=== PATIENT | female | born 1930 | race Caucasian/White ===

== ENCOUNTER 2017-02-01 14:12 | Emergency (ER) | payer MEDICARE ==
[2017-02-01] MEDS ORDERED: NITRO-BID 2% UD PACKETS TOP ONE (14:16)
[2017-02-01] MEDS ORDERED: CAPTOPRIL 25 MG PO ONE (14:18)
[2017-02-01] MEDS ORDERED: NITRO-BID 2% UD PACKETS ONE (14:22)
[2017-02-01] MEDS ORDERED: Sodium Chloride 0.9% 1000 ML 1,000 ML ONE (14:23)
[2017-02-01] MEDS ORDERED: CAPTOPRIL 25 MG ONE (14:23)
--- NOTE | 2017-02-01 14:24 | ERPHSYRPT ---
- History of Present Illness Time Seen by Provider: 02/01/17 14:16 Historian: patient, EMS, old records Exam Limitations: no limitations Physician History: CP after lunch 1 hour ago; no radiation; substernal 02/15; has had 4 baby asa and NTG x 4- pain now 12/16; no n&V; no diaphoresis; slight sob will place on O2 ; Timing/Duration: today, hour(s) (1), sudden, improved Activities at Onset: other (after eating) Quality: fullness Location: substernal Chest Pain Radiation: no radiation Severity of Pain-Max: severe Severity of Pain-Current: moderate Modifying Factors: Improves With: eating (worse after), oxygen (helps), aspirin , sitting up Associated Symptoms: shortness of breath (slight) Prior Chest Pain/Cardiac Workup: angina, cardiac cath, heart attack Nitro Today/Relief: 0.4 mg x 4, provided by EMS, provided by ED, mild relief Aspirin Treatment Today: 81 mg x 4, provided by EMS Allergies/Adverse Reactions: ceftriaxone Allergy (Verified 10/14/15 08:23) iodine Allergy (Verified 10/14/15 08:23) tetracycline Allergy (Verified 02/01/17 14:29) ANIMAL FUR Allergy (Uncoded 10/14/15 06:23) PERFUME OIL Allergy (Uncoded 10/14/15 06:23) Home Medications: Acetaminophen 325 mg [Tylenol 325 mg] 325 mg PO HS 10/14/15 [History] Albuterol 2.5 mg/3 ml Neb [Proventil 2.5 mg/3 ml Neb] 2.5 mg IH Q4HPRN PRN 10/14/15 [History] Amlodipine Besylate 5 mg [Norvasc 5 mg] 5 mg PO DAILY 10/14/15 [History] Atorvastatin Calcium 10 mg PO HS 10/14/15 [History] Calcium Carbonate/Vitamin D3 [Oyster Shell 500-Vit D3 200 Tb] 500 mg PO DAILY [History] Dicyclomine HCl 20 mg [Bentyl 20 mg] 20 mg PO DAILY 10/14/15 [History] Docusate Sodium 100 mg [Colace 100 MG] 100 mg PO BID 10/14/15 [History] Ezetimibe 10 mg [Zetia 10 MG] 10 mg PO HS 10/14/15 [History] Furosemide 40 mg [Lasix 40 MG] 40 mg PO DAILY 10/14/15 [History] Hydralazine HCl 50 mg PO TID 10/14/15 [History] Hydrochlorothiazide 25 mg [hydroDIURIL 25 MG] 25 mg PO DAILY 10/14/15 [ History] Isosorbide Mononitrate [Isosorbide Mononitrate ER] 60 mg PO HS 10/14/15 [History ] Levothyroxine Sodium 25 Mcg [Synthroid 25 Mcg] 25 mcg PO DAILY 10/14/15 [ History] Lisinopril 10 mg [Zestril 10 MG] 10 mg PO DAILY 10/14/15 [History] Magnesium Oxide 400 mg [Mag-Ox 400] 400 mg PO DAILY 10/14/15 [History] Multivits,Ca,Minerals/Iron/FA [Thera-M Tablet] 1 tab PO DAILY 10/14/15 [History] Omeprazole 40 mg PO DAILY 10/14/15 [History] Potassium Chloride 10 Meq Tab* [Klor Con 10 MEQ] 10 meq PO TID 10/14/15 [ History] Sucralfate 1 gm [Carafate 1 GM] 1 g PO QID 10/14/15 [History] Carbamide Peroxide [Debrox] 5 drops DAILY 02/01/17 [History] Hx Tetanus, Diphtheria Vaccination/Date Given: Yes Hx Influenza Vaccination/Date Given: Yes Hx Pneumococcal Vaccination/Date Given: Yes - Review of Systems Constitutional: No Symptoms Eyes: No Symptoms Ears, Nose, & Throat: No Symptoms Respiratory: No Cough, No Dyspnea, No Wheezing Cardiac: Chest Pain, Orthopnea, No Edema, No Palpitations, No Syncope Abdominal/Gastrointestinal: No Abdominal Pain, No Nausea, No Vomiting, No Diarrhea Genitourinary Symptoms: No Symptoms Musculoskeletal: No Symptoms Skin: No Symptoms Neurological: No Symptoms Psychological: No Symptoms Endocrine: Cold Intolerance, No Excessive Sweating, No Goiter Hematologic/Lymphatic: No Symptoms Immunological/Allergic: No Symptoms - Past Medical History Pertinent Past Medical History: Yes Neurological History: Peripheral Neuropathy, Stroke ENT History: Cataracts Cardiac History: Arrhythmia, Congestive Heart Failure, Coronary Artery Disease, High Cholesterol, Hypertension, Myocardial Infarction (MA) Respiratory History: Bronchitis, CHF, COPD Endocrine Medical History: Diabetes Type II, Hypothyroidism Musculoskeletal History: Arthritis, Fractures, Osteoporosis GI Medical History: GERD History: Other Psycho-Social History: Anxiety Female Reproductive Disorders: Uterine Cancer Other Medical History: GOUT, hx fracture in right foot. renal failure. anemia - Past Surgical History Past Surgical History: Yes Neuro Surgical History: No Pertinent History Cardiac: Cardiac Catheterization, Cardiac Stent Respiratory: No Pertinent History Gastrointestinal: Cholecystectomy Genitourinary: No Pertinent History Musculoskeletal: No Pertinent History Female Surgical History: Hysterectomy Other Surgical History: patient states she has 5 cardiac stents - Social History Smoking Status: Never smoker Exposure to second hand smoke: No Alcohol Use: None Drug Use: none Patient Lives Alone: No Significant Family History: hypertension - Female History Hx Now: No - Nursing Vital Signs Nursing Vital Signs: Initial Vital Signs Temperature 97.2 F 02/01/17 14:15 Pulse Rate 70 02/01/17 14:15 Respiratory Rate 16 02/01/17 14:15 Blood Pressure 160/57 02/01/17 14:15 O2 Sat by Pulse Oximetry 96 02/01/17 14:15 Pain Scale Pain Intensity 0 - Physical Exam General Appearance: moderate distress (CP), alert, thin Eye Exam: PERRL/EOMI, eyes nml inspection, No photophobia Ears, Nose, Throat Exam: normal ENT inspection, TMs normal, pharynx normal, moist mucous membranes Neck Exam: normal inspection, non-tender, supple, full range of motion, JVD ( mild), No meningismus Respiratory Exam: normal breath sounds, lungs clear, airway intact, crackles/ rales (few fine basilar rales), No chest tenderness, No respiratory distress, No wheezing Cardiovascular Exam: regular rate/rhythm, normal heart sounds, normal peripheral pulses, gallop (s3), capillary refill 2-3 sec, No murmur (2/6 Early blowing JEANNETTE) Gastrointestinal/Abdomen Exam: soft, normal bowel sounds, No tenderness, No guarding, No pulsatile mass, No rebound, No organomegaly Pelvic Exam: deferred Rectal Exam: deferred Back Exam: normal inspection, normal range of motion, No CVA tenderness, No vertebral tenderness Extremity Exam: normal inspection, normal range of motion, No pelvis stable, No suzanne's sign, No pedal edema Neurologic Exam: alert, oriented x 3, cooperative, casting assistant II-XII nml as tested, normal mood/affect, sensation nml Skin Exam: normal color, warm, dry, No rash, No cyanosis SpO2 Interpretation: normal SpO2: 97 (plaCED ON o2 FOR cp AND SOB) Oxygen Delivery: Room Air - Course Nursing assessment & vital signs reviewed: Yes EKG Interpreted by Me: RATE (78), Sinus Rhythm, Right [place] Deviation, NORMAL INTERVALS, NORMAL QRS, Ischemic ST-T changes (t WAVES INVERTED AND SLIGHTLY DEPRESSED IN INF LEADS) Rhythm Strip: Rate (76), Normal Sinus Rhythm - Radiology Exams Chest X-ray Interpretation: Reviewed by me, Teleradiologist Report, No Pneumothorax, Infiltrates (cleared on R now new on left), Other (CHF) Ordered Tests: Active Orders 24 hr Category Date Time Status Assistant Professor Of Education STAT Care 02/01/17 14:16 Active EKG-ER Only STAT Care 02/01/17 14:16 Active Oxygen-ED Only NASAL CANNULA 2 lpm Care 02/01/17 14:16 Active Pulse Oximetry (ED) STAT Care 02/01/17 14:16 Active CHEST 1 VIEW (PORTABLE) Stat Exams 02/01/17 14:17 Completed CBC W DIFF Stat Lab 02/01/17 14:38 Completed CMP Stat Lab 02/01/17 14:38 Completed NT PRO BNP Stat Lab 02/01/17 14:38 Completed PROTIME WITH INR Stat Lab 02/01/17 14:38 Completed TROPONIN Q3H Lab 02/01/17 14:30 Completed TROPONIN Q3H Lab 02/01/17 17:30 Ordered TROPONIN Q3H Lab 02/01/17 20:30 Ordered TROPONIN Q3H Lab 02/01/17 23:30 Ordered TROPONIN Q3H Lab 02/02/17 02:30 Ordered Medication Summary Generic Name Dose Route Start Last Admin Trade Name Freq PRN Reason Stop Dose Admin Sodium Chloride 1,000 mls @ 50 mls/hr 02/01/17 14:30 02/01/17 14:23 Sodium Chloride 0.9% 1000 Ml IV 03/03/17 14:29 50 mls/hr .Q20H KAYY Administration Discontinued Medications Generic Name Dose Route Start Last Admin Trade Name Freq PRN Reason Stop Dose Admin Captopril 25 mg 02/01/17 14:18 02/01/17 14:23 Captopril 25 Mg PO 02/01/17 14:19 25 mg STAT ONE Administration Captopril Confirm 02/01/17 14:23 Captopril 25 Mg Administered 02/01/17 14:24 Dose 25 mg .ROUTE .STK-MED ONE Nitroglycerin 1 gm 02/01/17 14:16 02/01/17 14:23 Nitro-Bid 2% Ud Packets TOP 02/01/17 14:17 1 gm STAT ONE Administration Nitroglycerin Confirm 02/01/17 14:22 Nitro-Bid 2% Ud Packets Administered 02/01/17 14:23 Dose 1 gm .ROUTE .STK-MED ONE Lab/Rad Data: Laboratory Result Diagrams 02/01/17 14:38 02/01/17 14:38 Laboratory Results 02/01/17 02/01/17 02/01/17 Range/Units 14:38 14:38 14:38 WBC 9.4 (4.0-10.5) K/mm3 RBC 4.09 L (4.1-5.4) M/mm3 Hgb 12.0 (12.0-16.0) gm/dl Hct 36.1 (35-47) % MCV 88.3 (78-100) fl MCH 29.3 (26-32) pg MCHC 33.2 (32-36) g/dl RDW 13.2 (11.5-14.0) % Plt Count 136 L (150-450) K/mm3 MPV 11.5 H (6-9.5) fl Gran % 70.6 H (36.0-66.0) % Lymphocytes % 18.9 L (24.0-44.0) % Monocytes % 6.7 (0.0-12.0) % Eosinophils % 3.3 (0.00-5.0) % Basophils % 0.5 (0.0-0.4) % Basophils # 0.05 (0-0.4) INR 1.68 (0.8-3.0) Sodium 134 L (136-145) mEq/L Potassium 3.9 (3.5-5.1) mEq/L Chloride 94 L (98-107) mEq/L Carbon Dioxide 36.2 H (21-32) mEq/L Anion Gap 8.0 (5-15) MEQ/L BUN 34 H (9-20) mg/dL Creatinine 1.24 (0.55-1.30) mg/dl Estimated GFR 44 ML/MIN Glucose 245 H (70-110) MG/DL Calcium 9.4 (8.5-10.1) mg/dL Total Bilirubin 0.20 (0.2-1.0) mg/dL AST 15 (15-37) U/L ALT 21 (12-78) U/L Alkaline Phosphatase 87 (46-116) U/L Troponin I (0.000-0.056) ng/ml NT-Pro-B Natriuret Pep 1821 H (0-450) pg/ml Serum Total Protein 7.5 (6.4-8.2) gm/dL Albumin 3.5 (3.4-5.0) g/dL 02/01/17 Range/Units 14:30 WBC (4.0-10.5) K/mm3 RBC (4.1-5.4) M/mm3 Hgb (12.0-16.0) gm/dl Hct (35-47) % MCV (78-100) fl MCH (26-32) pg MCHC (32-36) g/dl RDW (11.5-14.0) % Plt Count (150-450) K/mm3 MPV (6-9.5) fl Gran % (36.0-66.0) % Lymphocytes % (24.0-44.0) % Monocytes % (0.0-12.0) % Eosinophils % (0.00-5.0) % Basophils % (0.0-0.4) % Basophils # (0-0.4) INR (0.8-3.0) Sodium (136-145) mEq/L Potassium (3.5-5.1) mEq/L Chloride (98-107) mEq/L Carbon Dioxide (21-32) mEq/L Anion Gap (5-15) MEQ/L BUN (9-20) mg/dL Creatinine (0.55-1.30) mg/dl Estimated GFR ML/MIN Glucose (70-110) MG/DL Calcium (8.5-10.1) mg/dL Total Bilirubin (0.2-1.0) mg/dL AST (15-37) U/L ALT (12-78) U/L Alkaline Phosphatase (46-116) U/L Troponin I 0.024 (0.000-0.056) ng/ml NT-Pro-B Natriuret Pep (0-450) pg/ml Serum Total Protein (6.4-8.2) gm/dL Albumin (3.4-5.0) g/dL reviewed - Progress Progress: re-examined (AFTER MEDS) Air Movement: good Progress Note: 02/01/17 14:27 o2 APPLIES; ntg PASTE APPLIED AND MEDS GIVNE; iv CONTINUED; cxr AND LAB PENDING ; ekg SHOWS INFERIOR ISCHEMIA; will monitor and recheck; old EKG reviewed and chart 02/01/17 14:41 rechecked and pain improved now 4/10 from an onset of 8; O2 and NTG helping; vS ok; CXR stable CM; right lung field clearing; left with atelectasis; smoe Pulmonary edema; labs pending 02/01/17 15:02 family at bedside; patient states pain improving now 2-3/10; cbc ok; 02/01/17 15:17 INR = 1.68; patient continues to improve clinically and pain releif 02/01/17 16:08 family consulted and requested transfer to [facility] consult to Dr Payton Tipton , Cardiology; [facility] transfer center consulted and spoke wiht Dr Fish who accepted patiient for transfer at 1600; Trop and pBNP elevated with inf ischemia on EKG; Blood Culture(s) Obtained: No Antibiotics given: No Discussed with : Other (Dr Fish, Hospitalist at [facility] consulted and accepted for transfer at 1600) Counseled pt/family regarding: lab results, diagnosis, need for follow-up, rad results - Departure Time of Disposition: 16:30 Departure Disposition: Transfer (to [facility] care of Dr Fish , Hospitalist) Clinical Impression: Congestive heart failure (CHF), Chest pain at rest, Cardiac ischemia, Elevated troponin I level Condition: Serious Critical Care Time: Yes Critical Care Time(excluding separately billable procedures): 30-74 minutes Referrals: LEXI STORY [Primary Care Provider] - Instructions: Heart Failure
[2017-02-01] MEDS ORDERED: Sodium Chloride 0.9% 1000 ML 1,000 ML IV SCH (14:30)
--- NOTE | 2017-02-01 14:38 | XRAY ---
Indication: Chest pain. Comparison: October 18, 2015. Portable chest demonstrates stable borderline cardiomegaly, mild pulmonary edema, and left base infiltrate/atelectasis/effusion with right lung base clearing. Bony thorax intact. No new abnormalities.
[2017-02-01 14:47] LABS: BASOPHIL % 0.5 % (0.0-0.4); Eosinophil % 3.3 % (0.00-5.0); Granulocytes % 70.6 % (36.0-66.0); Lymphocytes % 18.9 % (24.0-44.0); Mean Cell Volume 88.3 fl (78-100); Mean Corpuscular Hemoglobin 29.3 pg (26-32); Mean Platelet Volume 11.5 fl (6-9.5); Monocytes % 6.7 % (0.0-12.0); Platelet Count 136 K/mm3 (150-450); Red Blood Count 4.09 M/mm3 (4.1-5.4); Red Cell Distribution Width 13.2 % (11.5-14.0); White Blood Count 9.4 K/mm3 (4.0-10.5)
[2017-02-01 15:07] LABS: INR 1.68 (0.8-3.0); PROTIME 19.1 SECONDS (9.95-12.35)
[2017-02-01 15:14] LABS: ALBUMIN 3.5 g/dL (3.4-5.0); BILIRUBIN,TOTAL 0.2 mg/dL (0.2-1.0); Carbon Dioxide 36.2 mEq/L (21-32); Potassium 3.9 mEq/L (3.5-5.1); Total Protein 7.5 gm/dL (6.4-8.2)
[2017-02-01 16:14] VITALS: O2SAT 100
[2017-02-01 16:53] VITALS: BP 127/52; PULSE 57
== END 2017-02-01 17:12 | disposition short-term general hospital (02) ==
LOC: ED 14:12
DX: I50.9 Heart failure, unspecified (principal); R07.89 Other chest pain; I25.9 Chronic ischemic heart disease, unspecified; R79.89 Other specified abnormal findings of blood chemistry; Z79.899 Other long term (current) drug therapy; I10 Essential (primary) hypertension; I25.2 Old myocardial infarction; I25.10 Atherosclerotic heart disease of native coronary artery without angina pectoris; E78.00 Pure hypercholesterolemia, unspecified; E03.9 Hypothyroidism, unspecified; E11.9 Type 2 diabetes mellitus without complications
CPT/HCPCS: 36415; 71010; 80053; 83880; 84484; 85025; 85610; 93005; 93041; 96360; 96361; 99285; A9270-GY

== ENCOUNTER 2017-06-18 10:15 | Day surgery (SDC) | payer MEDICARE ==
--- NOTE | 2017-06-18 07:43 | HP ---
DATE OF SURGERY: 06/18/2017 HISTORY OF PRESENT ILLNESS: The patient is an 86 year-old with anemia, dark stools and nausea. Last endoscopy years ago. She was reported to have hemoglobin of 8 recently. PAST MEDICAL HISTORY: Gynecologic cancer, heart disease, hypertension, diabetes mellitus type 2, hyperlipidemia, anxiety, hypothyroidism. MEDICATIONS: Atorvastatin, Ativan, sulcralfate, trazodone, Zetia, potassium chloride, calcium with vitamin D, omeprazole. ALLERGIES: NKDA. FAMILY HISTORY: Negative for colon or stomach cancer. SOCIAL HISTORY: No smoking or alcohol abuse. REVIEW OF SYSTEMS: Twelve systems reviewed per admission assessment. No chest pain or palpitations other systems negative or noncontributory as above and per preadmission questionnaire. PHYSICAL EXAMINATION: GENERAL: No acute distress. HEENT: Sclerae nonicteric. NECK: No JVD. CHEST: Equal excursion, nonlabored breathing. CVS: Regular rate and rhythm. ABDOMEN: Soft. No peritoneal signs. EXTREMITIES: No significant edema. NEURO: Alert, moving extremities symmetrically. No gross motor deficits noted. RECTAL: Deferred timed to endoscopy exam. IMPRESSION: Anemia, some dark stools, some nausea unclear etiology. It could be anything from gastritis, ulcer disease, esophagitis or lower GI source. As she has not had a colonoscopy for some time I feel she would benefit from upper and lower endoscopy for further evaluation. Risks and benefits explained in detail including but not limited to bleeding or infection, small risk of bowel injury or perforation possibly requiring open procedure, small risk of missed or nondiagnosis or incomplete exam possibly requiring barium enema, other studies or procedures, general risk of anesthesia or sedation but not limited to. She understands and agrees to the planned procedure and will proceed with EGD and colonoscopy as an outpatient.
[~2017-06-18 10:15] MED LIST: Lactated Ringers 1,000 ML IV ONE; Lactated Ringers 1,000 ML IV SCH
[2017-06-18] MEDS ORDERED: Ketamine HCl 50 MG/ML IV ONE (10:16)
[2017-06-18] MEDS ORDERED: DIPRIVAN 200 MG/20 ML IV ONE (10:16)
[2017-06-18] MEDS ORDERED: Xopenex 1.25 MG/0.5 ML UD NEBULE IH ONE (13:50)
[2017-06-18] MEDS ORDERED: Sodium Chloride 3 ML UD NEBULES IH ONE (13:52)
[2017-06-18] MEDS ORDERED: Sodium Chloride 3 ML UD NEBULES IH PRN (13:55)
[2017-06-18 14:28] LABS: Mean Cell Volume 87.2 fl (78-100); Mean Corpuscular Hemoglobin 28.5 pg (26-32); Mean Platelet Volume 11.7 fl (6-9.5); Platelet Count 127 K/mm3 (150-450); Red Blood Count 3.43 M/mm3 (4.1-5.4); Red Cell Distribution Width 12.7 % (11.5-14.0); White Blood Count 8.3 K/mm3 (4.0-10.5)
--- NOTE | 2017-06-18 14:30 | XRAY ---
Indication: Short of breath following colonoscopy/EEG. Comparison: February 01, 2017. Portable chest demonstrates stable borderline cardiomegaly with worsening left base infiltrate/atelectasis/effusion and new central vascular congestion and new tiny right base effusion favoring cardiac decompensation. Superimpose pneumonia not completely excluded.
--- NOTE | 2017-06-18 15:01 | OP ---
SURGERY DATE/TIME: 06/18/2017 1223 PREOPERATIVE DIAGNOSES: 1) Anemia. 2) Gastritis, small gastric polyp. 3) Small raised lesion versus early polyp second portion of duodenum. 4) Very poor colon prep. 5) Tortuous colon. 6) Diverticulosis. 7) Small internal and external hemorrhoids. 8) No signs of any active, gross old or new blood. POSTOPERATIVE DIAGNOSES: 1) Anemia. 2) Gastritis, small gastric polyp. 3) Small raised lesion versus early polyp second portion of duodenum. 4) Very poor colon prep. 5) Tortuous colon. 6) Diverticulosis. 7) Small internal and external hemorrhoids. 8) No signs of any active, gross old or new blood. PROCEDURES: 1) EGD with cold biopsy removal of small raised second portion of the duodenum lesion versus early polyp. 2) Cold biopsy gastritis in the antrum for Helicobacter pylori. 3) Cold biopsy small gastric polyp. 4) Cold biopsy small gastric polyp. 5) Colonoscopy to cecum. SURGEON: Dr. Asa Peña. ANESTHESIA: MAC. ESTIMATED BLOOD LOSS: Minimal. INDICATIONS: As noted above. Risks and benefits explained in detail and not limited to and consent obtained. DESCRIPTION OF PROCEDURE AND FINDINGS: The patient is taken to the endoscopy room. MAC anesthesia introduced. After official time out and no disagreement with planned procedure, a bite block positioned. Video gastroscope easily passed through the gastroesophageal junction 40 cm through the stomach and showed some mild to moderate gastritis some little petechial hemorrhages. No signs of any obvious large mass or ulcer. Scope passed through the pylorus to the junction of the second and third portion of the duodenum. In the second and third portion of the duodenum there was a small raised nodule whether this was just a simple early polyp versus hyperplastic lesion was removed with cold biopsy forceps. Good hemostasis noted. There were no signs of any obvious ulcers in the duodenum. The scope pulled back to the stomach. Cold biopsy taken of antrum to evaluate for Helicobacter pylori. Good hemostasis noted. The scope was pulled back a little further in the mid body of the stomach. Small gastric polyp removed with cold biopsy forceps. Good hemostasis noted. On retroflex there was slight weakness of the hiatus but no large hiatal hernia. The scope was straightened. Gastroesophageal junction noted to be about 40 cm. Z-line was crisp. The remainder of the esophagus no obvious masses or mucosal lesions. The scope was withdrawn. Attention is then turned to colonoscopy. Digital rectal exam did not reveal any rectal masses. She did have some small internal and external hemorrhoids. Video colonoscope inserted and passed up through the very poorly prepped large amount of liquidy semi-solid and solid stool. The scope is slowly and carefully navigated through with positioning on her back down the transverse colon, ascending colon to cecum. Trans-illuminating with a light in the right lower quadrant with palpation visualization of the valve and appendiceal orifice. Again overall prep was very poor, very much limiting the exam. On slow careful withdrawal of the scope there were no signs of any large polyps, masses or obstructing lesions. Again this is very limited given his very, very poor prep. She did have diverticulosis and small internal and external hemorrhoids, tortuous colon. The scope is withdrawn. The patient tolerated the procedure well. There were no immediate complications.
[2017-06-18 15:15] LABS: ANION GAP 9.9 MEQ/L (5-15); BLOOD UREA NITROGEN 8 mg/dL (9-20); CHLORIDE 95 mEq/L (98-107); Carbon Dioxide 34.7 mEq/L (21-32); Glucose 193 MG/DL (70-110); Potassium 3.9 mEq/L (3.5-5.1); SODIUM 136 mEq/L (136-145)
[2017-06-18 16:09] LABS: CHLORIDE 96 mEq/L (98-107); Carbon Dioxide 36.2 mEq/L (21-32); Glucose 200 MG/DL (70-110); Potassium 3.7 mEq/L (3.5-5.1); SODIUM 137 mEq/L (136-145)
[2017-06-18 16:13] LABS: BLOOD UREA NITROGEN 9 mg/dL (9-20)
[2017-06-18] MEDS ORDERED: Lasix 20 MG/2 ML ONE ×2 (16:41→16:48)
[2017-06-18 17:18] VITALS: BP 176/67; PULSE 75
[2017-06-18 17:19] VITALS: O2SAT 100
[2017-06-19] MEDS ORDERED: Lasix 20 MG/2 ML IV SCH (10:00)
== END 2017-06-18 17:45 ==
LOC: SDC 10:15
PROVIDERS: ATTEND Surgery
PROC: 0DB98ZX Excision of Duodenum, Via Natural or Artificial Opening Endoscopic, Diagnostic (ICD-10-PCS; principal; 2017-06-18)
PROC: 0DB78ZX Excision of Stomach, Pylorus, Via Natural or Artificial Opening Endoscopic, Diagnostic (ICD-10-PCS; 2017-06-18)
DX: D64.9 Anemia, unspecified (principal); K29.70 Gastritis, unspecified, without bleeding; K31.7 Polyp of stomach and duodenum; Q43.8 Other specified congenital malformations of intestine; K57.90 Diverticulosis of intestine, part unspecified, without perforation or abscess without bleeding; K64.4 Residual hemorrhoidal skin tags; K64.8 Other hemorrhoids; I10 Essential (primary) hypertension; E11.9 Type 2 diabetes mellitus without complications; E78.5 Hyperlipidemia, unspecified; F41.9 Anxiety disorder, unspecified; E03.9 Hypothyroidism, unspecified; I51.9 Heart disease, unspecified; Z79.899 Other long term (current) drug therapy
CPT/HCPCS: 00740; 00810; 36415; 71010; 80048; 82962; 85027; 94640; 99100; J1940; J2704; A9270-GY